=== PATIENT | male | born 2000 | race Caucasian/White ===

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

== ENCOUNTER 2023-07-22 16:17 | Emergency (ER) | payer MEDICAID ==
[~2023-07-22] VITALS: Ht 180.3 cm; Wt 86.2 kg
[2023-07-22 16:40] VITALS: BP 125/87; PULSE 96; RESP 18; TEMP 97; O2SAT 98
[2023-07-22 17:27] LABS: BASOPHILS % (AUTO) 0.9 % (0.0-2.0); EOSINOPHILS # (AUTO) 0.1 K/uL (0-0.4); EOSINOPHILS % (AUTO) 1.4 % (0.0-4.0); HEMATOCRIT 43.9 % (36-52); HEMOGLOBIN 15.3 g/dL (12.0-18.0); LYMPHOCYTES # (AUTO) 1.9 K/uL (2.0-11.5); LYMPHOCYTES % (AUTO) 33.5 % (20.5-51.1); MEAN CORPUSCULAR HEMOGLOBIN 30 pg (27-31); MEAN CORPUSCULAR HGB CONC 35 g/dL (33-37); MEAN CORPUSCULAR VOLUME 85.2 fL (80-94); MONOCYTES # (AUTO) 0.4 K/uL (0.8-1.0); MONOCYTES % (AUTO) 6.4 % (1.7-9.3); NEUTROPHILS # (AUTO) 3.2 K/uL (1.8-7.7); NEUTROPHILS % (AUTO) 57.8 % (42.2-75.2); PLATELET COUNT (AUTO) 255 K/uL (140-450); RED BLOOD CELL COUNT(AUTO) 5.16 MIL/uL (4.20-6.10); RED CELL DISTRIBUTION WIDTH 13.2 % (11.6-13.7); WHITE BLOOD COUNT (AUTO) 5.6 K/uL (4.8-10.8)
[2023-07-22] MEDS ORDERED: ONDANSETRON 4 MG/2 ML VIAL ONE (17:38)
[2023-07-22] MEDS ORDERED: ONDANSETRON 4 MG/2 ML VIAL IVP ONE (17:40)
[2023-07-22 17:48] LABS: INR 1.07 (0.8-1.2); PARTIAL THROMBOPLASTIN TIME 25.4 secs (22-35.6); PROTHROMBIN TIME 11.2 secs (10.8-13.4)
[2023-07-22] MEDS ORDERED: diphenhydrAMINE 50 MG/ML VIAL IVP ONE ×2 (18:20→18:50)
[2023-07-22] MEDS ORDERED: PROCHLORPERAZINE 10 MG/2 ML VIAL IVP ONE (18:20)
[2023-07-22] MEDS ORDERED: KETOROLAC 30 MG/ML VIAL IVP ONE (18:20)
[2023-07-22 18:25] LABS: ALANINE AMINOTRANSFERASE 19 U/L (12-78); ALBUMIN 4.2 g/dL (3.4-5.0); ALKALINE PHOSPHATASE 58 U/L (50-136); ANION GAP 16.3 (8-16); ASPARTATE AMINOTRANSFERASE 15 U/L (15-37); CALCIUM 8.8 mg/dL (8.5-10.1); CARBON DIOXIDE 28.8 mmol/L (21-32); CHLORIDE 99 mmol/L (98-107); GFR ARICAN-AMERICAN 121 mL/min (>90); GFR NON ARICAN-AMERICAN 100 mL/min (>90); GLUCOSE 103 mg/dL (74-106); POTASSIUM 4.1 mmol/L (3.5-5.1); SODIUM SERUM 140 mmol/L (136-145); TOTAL BILIRUBIN 0.7 mg/dL (0.0-1.0); TOTAL PROTEIN, SERUM 7.3 g/dL (6.4-8.2); UREA NITROGEN, BLOOD 8 mg/dL (7-18)
[2023-07-22 20:05] VITALS: BP 104/47; PULSE 103; RESP 20; TEMP 98.4; O2SAT 98
== END 2023-07-22 20:05 | disposition home or self-care (01) ==
LOC: MED 16:17
DX: R20.0 Anesthesia of skin (principal); I67.1 Cerebral aneurysm, nonruptured; Z98.890 Other specified postprocedural states; Z79.899 Other long term (current) drug therapy
CPT/HCPCS: 36415; 70450; 70496; 70498; 71045; 80053; 82948; 84484; 85025; 85610; 85730; 86886; 86900; 86901; 93005; 96374; 96375; 99291; J0780; J1200; J1885; J2405; Q9967

== ENCOUNTER 2024-06-19 07:23 | Day surgery (SDC) | payer MEDICAID ==
[~2024-06-19] VITALS: Ht 177.8 cm; Wt 68.0 kg
[2024-06-19] MEDS ORDERED: fentaNYL citrate 0.05 MG/ML VIAL ONE (09:24)
[2024-06-19] MEDS ORDERED: MIDAZOLAM 5 MG/5 ML VIAL ONE (09:25)
[2024-06-19] MEDS: fentaNYL citrate 0.05 MG/ML VIAL IVP ONE (09:56)
[2024-06-19] MEDS: MIDAZOLAM 2 MG/2 ML VIAL IVP ONE (09:57)
== END 2024-06-19 11:15 | disposition home or self-care (01) ==
LOC: MMU 07:23 → MDS 07:23
PROVIDERS: ATTEND Internal Medicine Gastroenterology
DX: R19.7 Diarrhea, unspecified (principal); R19.4 Change in bowel habit; K82.4 Cholesterolosis of gallbladder; R10.13 Epigastric pain; Z98.890 Other specified postprocedural states
CPT/HCPCS: 36415; 43239; 45331; 86677; 88305; J2250; J3010